=== PATIENT | male | born 1935 | race Caucasian/White ===

== ENCOUNTER 2016-09-27 09:47 | Day surgery (SDC) | payer MEDICARE, BC ==
[2016-09-27] MEDS ORDERED: ACETAZOLAMIDE 500 MG CER ONE (09:55)
[2016-09-27] MEDS: PROPARACAINE HCL 0.5% OPHTHALMIC SOL ONE ×3 (10:15→11:20)
[2016-09-27] MEDS: PHENYLEPHRINE HCL 10% OPHTHAL SOL ONE ×2 (10:15→10:30)
[2016-09-27] MEDS: CYCLOPENTOLATE 1% SOL ONE ×2 (10:16→10:30)
[2016-09-27] MEDS ORDERED: MIDAZOLAM 2 MG/2 ML SOL ONE (11:03)
[2016-09-27] MEDS ORDERED: POVIDONE IODINE 5% SOL ONE (11:13)
[2016-09-27] MEDS ORDERED: LIDOCAINE HCL 1% MPF SOL ONE (11:14)
[2016-09-27] MEDS ORDERED: BSS 500 ML 500 ML IR ONE (11:14)
[2016-09-27 11:53] VITALS: BP 132/65; PULSE 53; RESP 20; TEMP 97.5; O2SAT 98
== END 2016-09-27 12:06 | disposition home or self-care (01) | DRG 125 ==
LOC: SURG 09:47
PROVIDERS: ATTEND Ophthalmology
DX: H25.9 Unspecified age-related cataract (principal); E11.9 Type 2 diabetes mellitus without complications
CPT/HCPCS: 82962; J2250; J2001

== ENCOUNTER 2018-06-30 07:23 | Day surgery (SDC) | payer MEDICARE, BC ==
[2018-06-30] MEDS ORDERED: PROPOFOL 500 MG/50 ML EMU IV ONE (08:01)
[2018-06-30] MEDS ORDERED: LIDOCAINE HCL 1% MPF 30 SOL ONE (08:01)
[2018-06-30 08:58] VITALS: RESP 20; O2SAT 96
[2018-06-30 09:08] VITALS: BP 164/74; PULSE 51; TEMP 97.6
== END 2018-06-30 09:50 | disposition home or self-care (01) | DRG 951 ==
LOC: SURG 07:23
PROVIDERS: ATTEND Surgery
DX: Z12.11 Encounter for screening for malignant neoplasm of colon (principal); K57.32 Diverticulitis of large intestine without perforation or abscess without bleeding; Z86.010 Personal history of colon polyps; D12.4 Benign neoplasm of descending colon; D12.5 Benign neoplasm of sigmoid colon
CPT/HCPCS: J2001; J2704